=== PATIENT | male | born 1965 | race American Indian/Alaskan Native ===

== ENCOUNTER 2021-05-07 10:59 | Outpatient (CLI) | payer MEDICARE ==
[2021-05-07] MEDS ORDERED: LIDOCAINE (4%) 40 MG/ML TOPICAL SOLN 50 ML BOTTLE TP ONE (12:05)
== END 2021-05-07 11:00 | disposition home or self-care (01) ==
LOC: WOUND 10:59
PROVIDERS: ATTEND Surgery
DX: L89.893 Pressure ulcer of other site, stage 3 (principal); S91.302A Unspecified open wound, left foot, initial encounter; I11.0 Hypertensive heart disease with heart failure; I50.9 Heart failure, unspecified; J44.9 Chronic obstructive pulmonary disease, unspecified; I25.2 Old myocardial infarction; Z87.891 Personal history of nicotine dependence; X58.XXXA Exposure to other specified factors, initial encounter; Y93.89 Activity, other specified; Y92.89 Other specified places as the place of occurrence of the external cause; Y99.8 Other external cause status
CPT/HCPCS: 99205; G0463

== ENCOUNTER 2021-07-21 10:53 | Outpatient (CLI) | payer MEDICARE ==
[2021-07-21] MEDS ORDERED: LIDOCAINE (4%) 40 MG/ML TOPICAL SOLN 50 ML BOTTLE TP SCH (12:00)
== END 2021-07-21 10:54 | disposition home or self-care (01) ==
LOC: WOUND 10:53
PROVIDERS: ATTEND Surgery
DX: L89.893 Pressure ulcer of other site, stage 3 (principal); L97.522 Non-pressure chronic ulcer of other part of left foot with fat layer exposed; I11.0 Hypertensive heart disease with heart failure; I50.9 Heart failure, unspecified; I25.2 Old myocardial infarction; J44.9 Chronic obstructive pulmonary disease, unspecified; Z87.891 Personal history of nicotine dependence; Z79.899 Other long term (current) drug therapy